=== PATIENT | female | born 1935 | race Caucasian/White ===

== ENCOUNTER 2016-11-03 10:34 | Emergency (ER) | payer MEDICARE, OTHER ==
[~2016-11-03] VITALS: Ht 170.2 cm; Wt 73.0 kg
[~2016-11-03 10:34] MED LIST: ASPI81TA82 PO
[2016-11-03 10:36] VITALS: BP 190/74; PULSE 86; RESP 20; TEMP 97.3; O2SAT 98
[2016-11-03] MEDS ORDERED: SODIUM CHLOR 0.9% 1000 ML INJ 1,000 ML IV SCH (11:09)
[2016-11-03] MEDS ORDERED: ONDANSETRON HCL 4 MG/2 ML VIAL IV PUSH ONE (11:15)
[2016-11-03] MEDS ORDERED: SODIUM CHLORIDE 0.9% FLUSH 10 ML FLUSH IV FLUSH PRN (11:15)
[2016-11-03 11:23] VITALS: BP 177/75; PULSE 74; RESP 18; O2SAT 100
[2016-11-03] MEDS ORDERED: ASPI81CH CHEW (11:26)
[2016-11-03 11:40] LABS: AUTOMATED NEUTROPHIL # 12.5 TH/MM3 (1.8-7.7); BASOPHIL % 0.3 % (0.0-2.0); EOSINOPHIL % 0.3 % (0.0-4.0); HEMATOCRIT 40.7 % (35.0-46.0); HEMO FLAGS DIFF FINAL; LYMPH % 8.4 % (9.0-44.0); LYMPHOCYTE # 1.2 TH/MM3 (1.0-4.8); MEAN CELL VOLUME 100.4 FL (80.0-100.0); MEAN CORPUSCULAR HEMOGLOBIN 33.9 PG (27.0-34.0); MEAN CORPUSCULAR HGB CONC 33.7 % (32.0-36.0); MONO % 5.3 % (0.0-8.0); NEUT % 85.7 % (16.0-70.0); PLATELET COUNT 207 TH/MM3 (150-450); RED BLOOD COUNT 4.06 MIL/MM3 (4.00-5.30); RED CELL DISTRIBUTION WIDTH 13.4 % (11.6-17.2); WHITE BLOOD COUNT 14.6 TH/MM3 (4.0-11.0)
[2016-11-03 12:22] LABS: BICARBONATE 28.6 MEQ/L (21.0-32.0); POTASSIUM 4.2 MEQ/L (3.5-5.1)
[2016-11-03 12:34] VITALS: BP 133/63; PULSE 71; RESP 18; O2SAT 100
[2016-11-03 14:28] VITALS: BP 158/67; PULSE 69; RESP 18; O2SAT 98
--- NOTE | 2016-11-03 14:29 | RADRPT ---
EXAM DATE/TIME: 11/03/2016 14:11 [place] COMPARISON: No previous studies available for comparison. INDICATIONS : Nausea and diarrhea. ORAL CONTRAST: No oral contrast ingested. RADIATION DOSE: 9.96 CTDIvol (mGy) MEDICAL HISTORY : None SURGICAL HISTORY : None. ENCOUNTER: Initial ACUITY: 1 day PAIN SCALE: 5/10 LOCATION: Bilateral abdomen. TECHNIQUE: Volumetric scanning of the abdomen and pelvis was performed. Using automated exposure control and ad justment of the mA and/or kV according to patient size, radiation dose was kept as low as reasonably achievable to obtain optimal diagnostic quality images. FINDINGS: LOWER LUNGS: The visualized lower lungs are clear. There is a centrally calcified 11 mm nodule/granuloma in the le ft lower lobe. There is dense calcification of the mitral annulus. LIVER: Homogeneous density without concerning lesion. There is a 5 mm low density lesion right posterior haritha er that is too small to characterize. There is no dilation of the biliary tree. No calcified gallst ones. SPLEEN: Normal size without lesion. PANCREAS: Within normal limits. KIDNEYS: Normal in size and shape. There is no mass, stone, or hydronephrosis. There are multiple renal sinus es bilaterally. ADRENAL GLANDS: Within normal limits. VASCULAR: There is no aortic aneurysm. There is severe atherosclerotic disease. BOWEL/MESENTERY: The stomach and colon demonstrate no acute abnormality. A small hiatal hernia is present. There is a segment of mid to distal ileum in the right lower quadrant which demonstrates circumferential wall t hickening and perienteric inflammatory change and a small amount mesenteric fluid. There is no region al lymphadenopathy or signs of bowel obstruction. Fat density structure in the third portion of the d uodenum measures 2 cm. There is no free intraperitoneal air or fluid. ABDOMINAL WALL: Within normal limits. RETROPERITONEUM: There is no lymphadenopathy. BLADDER: No wall thickening or mass. REPRODUCTIVE: Within normal limits. INGUINAL: There is no lymphadenopathy or hernia. MUSCULOSKELETAL: There are degenerative changes of the lumbar spine. CONCLUSION: 1. There is a segment of abnormal proximal to mid ileum in the right lower quadrant which demonstrate s wall thickening and perienteric inflammation. There are no signs of bowel obstruction. This represe nts an enteritis from uncertain etiology. Infectious, inflammatory, or ischemic etiology should all b e considered. 2. Nonacute findings include small hiatal hernia and severe atherosclerotic disease. Jose Alejandro Granger MD on November 03, 2016 at 14:20 Board Certified Radiologist. This report was verified electronically.
[2016-11-03] MEDS ORDERED: DICY10 PO (14:43)
[2016-11-03] MEDS ORDERED: ZOFR4TAB3 SL (14:43)
--- NOTE | 2016-11-03 14:43 | PD ---
HPI Chief Complaint: Abdominal Pain Time Seen by Provider: 10:59 Travel History International Travel<30 days: No Contact w/Intl Traveler<30days: No Traveled to known affect area: No History of Present Illness HPI 80-year-old female came to the emergency room with history of sudden onset diarrhea starting 5:30 this morning. Patient says she had watery diarrhea 6 times. The last episode was at 9:30 AM. Along with the last episode she also had vomiting which made her a little bit lightheaded and decided to come to the emergency room. Blood in the stool or vomit. Currently she feels a little weak. She is also feeling some cramps in her abdomen. Vital signs were relatively stable. No history of recent antibiotic use or any sick contacts. She is otherwise healthy and only takes aspirin every day. [facility] Past Medical History Narrative Medical List of her past medical, surgical, social and family history was reviewed from the nursing note. Hx Anticoagulant Therapy: Yes (BABY ASPIRIN DAILY ) Cancer: No Cardiovascular Problems: No Diabetes: No Endocrine: No Genitourinary: No Hepatitis: No Hiatal Hernia: No Immune Disorder: No Musculoskeletal: No Neurologic: No Psychiatric: No Reproductive: No Respiratory: No ?: Not Past Surgical History Abdominal Surgery: No AICD: No Cardiac Surgery: No Ear Surgery: No Endocrine Surgery: No Eye Surgery: Yes (CATARACTS REMOVAL) Genitourinary Surgery: No Gynecologic Surgery: Yes (TUBULAGATION) Joint Replacement: No Oral Surgery: No Pacemaker: No Thoracic Surgery: No Social History Alcohol Use: Yes Tobacco Use: Yes Substance Use: No Allergies-Medications (Allergen,Severity, Reaction): Coded Allergies: No Known Allergies (Unverified , 11/03/16) Comments No known drug allergies. Reported Meds & Prescriptions Reported Meds & Active Scripts Active Zofran Odt (Ondansetron Odt) 4 Mg Tab 4 Mg SL Q6HR PRN Bentyl (Dicyclomine HCl) 10 Mg Cap 10 Mg PO TID PRN Reported Aspirin 81 Mg Chew 81 Mg CHEW DAILY Narrative Medication List of her home medications reviewed from the nursing note. Review of Systems Except as stated in HPI: all other systems reviewed are Neg Physical Exam Narrative GENERAL: Awake, alert, moderate distress SKIN: Focused skin assessment warm/dry. HEAD: Atraumatic. Normocephalic. EYES: Pupils equal and round. No scleral icterus. No injection or drainage. ENT: No nasal bleeding or discharge. Dry mucous membrane with coated tongue NECK: Trachea midline. No JVD. CARDIOVASCULAR: Regular rate and rhythm. No murmur appreciated. RESPIRATORY: No accessory muscle use. Clear to auscultation. Breath sounds equal bilaterally. GASTROINTESTINAL: Abdomen soft, non-tender, nondistended. Hepatic and splenic margins not palpable. MUSCULOSKELETAL: No obvious deformities. No clubbing. No cyanosis. No edema. NEUROLOGICAL: Awake and alert. No obvious cranial nerve deficits. Motor grossly within normal limits. Normal speech. PSYCHIATRIC: Appropriate mood and affect; insight and judgment normal. Data Data Last Documented VS Vital Signs Date Time Temp Pulse Resp B/P Pulse Ox O2 Delivery O2 Flow Rate FiO2 11/03/16 14:28 69 18 158/67 98 Room Air 11/03/16 10:36 97.3 Orders Basic Metabolic Panel (Bmp) (11/03/16 11:09) Complete Blood Count With Diff (11/03/16 11:09) Iv Access Insert/Monitor (11/03/16 11:09) Ecg Monitoring (11/03/16 11:09) Oximetry (11/03/16 11:09) Sodium Chlor 0.9% 1000 Ml Inj (Ns 1000 M (11/03/16 11:09) Sodium Chloride 0.9% Flush (Ns Flush) (11/03/16 11:15) Ondansetron Inj (Zofran Inj) (11/03/16 11:15) Ct Abd/Pel W/O Iv Contrast (11/03/16 ) Dicyclomine (Bentyl) (11/03/16 14:45) Labs Laboratory Tests Test 11/03/16 11:22 White Blood Count 14.6 TH/MM3 Red Blood Count 4.06 MIL/MM3 Hemoglobin 13.7 GM/DL Hematocrit 40.7 % Mean Corpuscular Volume 100.4 FL Mean Corpuscular Hemoglobin 33.9 PG Mean Corpuscular Hemoglobin 33.7 % Concent Red Cell Distribution Width 13.4 % Platelet Count 207 TH/MM3 Mean Platelet Volume 11.0 FL Neutrophils (%) (Auto) 85.7 % Lymphocytes (%) (Auto) 8.4 % Monocytes (%) (Auto) 5.3 % Eosinophils (%) (Auto) 0.3 % Basophils (%) (Auto) 0.3 % Neutrophils # (Auto) 12.5 TH/MM3 Lymphocytes # (Auto) 1.2 TH/MM3 Monocytes # (Auto) 0.8 TH/MM3 Eosinophils # (Auto) 0.0 TH/MM3 Basophils # (Auto) 0.0 TH/MM3 CBC Comment DIFF FINAL Differential Comment Sodium Level 142 MEQ/L Potassium Level 4.2 MEQ/L Chloride Level 108 MEQ/L Carbon Dioxide Level 28.6 MEQ/L Anion Gap 5 MEQ/L Blood Urea Nitrogen 14 MG/DL Creatinine 0.92 MG/DL Estimat Glomerular Filtration 59 ML/MIN Rate Random Glucose 122 MG/DL Calcium Level 9.2 MG/DL MDM Medical Decision Making Medical Screen Exam Complete: Yes Emergency Medical Condition: Yes Medical Record Reviewed: Yes Differential Diagnosis Colitis, enteritis, acute gastroenteritis Narrative Course 2:40 PM Given the leukocytosis I decided to order a CT scan of her abdomen and pelvis. Patient was given 1 L of IV fluid bolus and Zofran for nausea. CT scan was suggestive of terminal enteritis/ileitis but otherwise no other acute findings. I have reassessed the patient and she says she has not had anymore bowel movements yet or vomiting. I've given her dose of Bentyl and I'm comfortable discharging her home with prescription for Bentyl and Zofran. Procedures EKG Prior to Arrival: No Diagnosis Primary Impression: OTHER VIRAL ENTERITIS Referrals: Sj Raines MD 2 days Additional Instructions: Please return to the ER if the condition worsens or any other new concerns. Follow-up with the GI specialist is name and number been given to you in case symptoms do not get better. Take clear liquid diet for next 48 hours. Take the medication as per the prescription direction. Med/Other Pt SpecificInfo: Prescription(s) given Scripts Ondansetron Odt (Zofran Odt)4 Mg Tab4 Mg SL Q6HR PRN (Nausea/Vomiting) #15 TAB Ref 0 Prov:Guilherme Andrew MD 11/03/16 Dicyclomine (Bentyl)10 Mg Cap10 Mg PO TID PRN (Bowel Management) #10 CAP Ref 0 Prov:Guilherme Andrew MD 11/03/16 Disposition: 01 DISCHARGE HOME Condition: Stable Guilherme Andrew MD Nov 03, 2016 14:43
[2016-11-03] MEDS ORDERED: DICYCLOMINE HCL 10 MG CAP PO ONE (14:45)
== END 2016-11-03 14:56 | disposition home or self-care (01) ==
LOC: NEPD 10:34
DX: A08.4 Viral intestinal infection, unspecified (principal); R11.0 Nausea; Z72.0 Tobacco use
CPT/HCPCS: 74176; 80048; 85025; 96361; 96374; 99285; J2405; J7030